=== PATIENT | male | born 1965 | race Caucasian/White ===

== ENCOUNTER 2019-04-15 14:42 | Emergency (ER) | payer MEDICAID ==
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
[2019-04-15] MEDS ORDERED: OXcarbazepine 300 MG Tab PO ONE (15:08)
[2019-04-15] MEDS ORDERED: Levothyroxine 112 MCG Tab PO ONE (15:10)
[2019-04-15] MEDS ORDERED: LORazepam 1 MG Tab PO ONE (15:12)
[2019-04-15] MEDS ORDERED: Mirtazapine 15 MG Tab PO ONE (15:12)
[2019-04-15] MEDS ORDERED: Ondansetron 4 MG Tab.DIS PO ONE (15:26)
[2019-04-15] MEDS ORDERED: Levothyroxine 100 MCG, Levothyroxine 50 MCG, Levothyroxine 25 MCG PO ONE ×3 (15:30)
== END 2019-04-15 17:16 ==
LOC: JP.ED 14:42
DX: F10.239 Alcohol dependence with withdrawal, unspecified (principal)
CPT/HCPCS: 36415; 80053; 80305; 80320; 81001; 85025; 99285; A9270; 99283; G0480

== ENCOUNTER 2019-10-17 02:44 | Emergency (ER) | payer MEDICAID ==
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
--- NOTE | 2019-10-17 04:18 | CRLCR ---
INDICATION: Pain, history of fracture TECHNIQUE: Two views right tibia and fibula COMPARISON: None FINDINGS: Bones: Healing fractures midshaft right tibia and fibula. Joint spaces: Unremarkable. Soft tissues: Unremarkable. IMPRESSION: Healing fractures midshaft right tibia and fibula. Dictated by Andrea Schulz MD @ 10/17/2019 4:16:15 AM Dictated by: Andrea Schulz MD @ 10/17/2019 04:16:20 (Electronically Signed)
[2019-10-17] MEDS ORDERED: fentaNYL 100 MCG/2 ML SDV IM ONE (04:26)
[2019-10-17] MEDS ORDERED: Ketorolac 10 MG Tab PO ONE (08:29)
== END 2019-10-17 12:21 | disposition home or self-care (01) ==
LOC: JP.ED 02:44
DX: S80.11XA Contusion of right lower leg, initial encounter (principal); F17.210 Nicotine dependence, cigarettes, uncomplicated; Z91.030 Bee allergy status; Z79.899 Other long term (current) drug therapy; E03.9 Hypothyroidism, unspecified; W19.XXXA Unspecified fall, initial encounter
CPT/HCPCS: 73590; 96372; 99283; A9270; J3010